=== PATIENT | female | born 1985 | race Caucasian/White ===

== ENCOUNTER 2020-11-11 15:55 | Outpatient (CLI) | payer OTHER ==
--- NOTE | 2020-11-12 15:25 | Ultrasound Report ---
PROCEDURE: Pelvic w/Transvaginal INDICATIONS: HISTORY OF OVARIAN CYST, NEUROENDOCRINE CA TECHNIQUE: Real-time scanning was performed of the pelvic organs, with image documentation. Additional endovagi nal scanning was necessary due to incomplete visualization of the adnexal and endometrial structures by transabdominal scanning. COMPARISON: None. FINDINGS: No pathologic free abdominal or pelvic fluid. Uterus: Uterus is retroverted and normal in size at 7.4 x 4.2 x 6.8 cm. The endometrium measures 0. 3 cm in combined thickness. There is a right fundal anterior intramural hypoechoic fibroid measuring 0.9 x 0.9 x 0.8 cm. Ovaries: The left ovary surgically absent. The right ovary measures 3.2 x 1.9 x 2.2 cm. A few small follicles are noted in the right ovary. No adnexal masses identified. IMPRESSION: 1. No adnexal masses identified. 2. Small intramural fibroid in the uterus. Reviewed by: Gibran Sweeney MD on 11/12/2020 3:23 PM PST Approved by: Gibran Sweeney MD on 11/12/2020 3:23 PM PST Station ID: [id number]
== END 2020-11-11 15:56 | disposition home or self-care (01) ==
LOC: DI 15:55
PROVIDERS: ATTEND Obstetrics & Gynecology
DX: C7A.8 Other malignant neuroendocrine tumors (principal); Z87.42 Personal history of other diseases of the female genital tract; D25.1 Intramural leiomyoma of uterus

== ENCOUNTER 2021-03-23 11:02 | Outpatient (CLI) | payer OTHER | END 2021-03-23 11:03 | disposition home or self-care (01) | LOC: LAB.R 11:02 | PROVIDERS: ATTEND Internal Medicine | DX: D3A.8 Other benign neuroendocrine tumors (principal) | CPT/HCPCS: 81599; 83497 ==

== ENCOUNTER 2021-04-07 08:00 | Outpatient (CLI) | payer OTHER | END 2021-04-07 23:59 | disposition home or self-care (01) | LOC: LAB.N 08:00 | PROVIDERS: ATTEND Family Medicine | DX: R39.9 Unspecified symptoms and signs involving the genitourinary system (principal) | CPT/HCPCS: 87086 ==